=== PATIENT | male | born 1935 | race Caucasian/White ===

== ENCOUNTER 2018-09-03 07:27 | Outpatient (CLI) | payer OTHER ==
--- NOTE | 2018-09-03 07:52 | RAD ---
2 views chest HISTORY: Congestive heart failure. 2 views chest demonstrates mild cardiomegaly. Sternotomy wires seen. A small granuloma seen over the right lung base unchanged since the previous exam. No acute intrathor acic abnormality seen. IMPRESSION: Cardiomegaly and pulmonary vascular congestion.
== END 2018-09-03 07:28 | disposition home or self-care (01) ==
LOC: MADRAD 07:27
PROVIDERS: ATTEND Obstetrics & Gynecology
DX: I50.9 Heart failure, unspecified (principal); I51.7 Cardiomegaly; R09.89 Other specified symptoms and signs involving the circulatory and respiratory systems
CPT/HCPCS: 71046